=== PATIENT | female | born 1970 | race Hispanic/Latino ===

== ENCOUNTER 2021-03-01 11:14 | Emergency (ER) | payer BC ==
[~2021-03-01 11:14] MED LIST: CIPROFLOXACN500 MG PO; NAPROSYN375 MG PO
[2021-03-01 12:37] LABS: HEMATOCRIT 40.6 % (37.0-47.0); HEMOGLOBIN 13.7 g/dl (12.0-16.0); IMMATURE GRANULOCYTES 0.1 % (0.0-5.0); MEAN CELL VOLUME 99.3 fL CALC (80.0-100.0); MEAN CORPUSCULAR HGB 33.5 pG CALC (26.0-32.0); MEAN CORPUSCULAR HGB CONC 33.7 g/dL CAL (32.0-36.0); NEUT# 10.66 thou/uL (2.00-7.15); RED BLOOD COUNT 4.09 mill/uL (4.20-5.60)
[2021-03-01 12:52] LABS: ALKALINE PHOSPHATASE 91 u/l (38-126); ANION GAP 16 (6-22 (CALC)); BILIRUBIN, TOTAL 0.6 mg/dL (0.0-1.4); BUN 13 mg/dL (7-17); BUN/CREATININE RATIO 21 (12-20 (CALC)); CARBON DIOXIDE 20 mmol/l (22-30); CHLORIDE 104 mmol/l (95-108); CREATININE 0.6 mg/dL (0.5-1.0); GFR > 60 ML/MIN (>=60 (CALC)); GFR FOR AFR.AMER. > 60 ML/MIN (>=60 (CALC)); POTASSIUM 4.1 mmol/l (3.5-5.1); SGOT/AST 30 u/l (14-36); SODIUM 136 mmol/l (137-146); TOTAL PROTEIN 7.1 g/dL (6.3-8.2)
[2021-03-01 12:53] LABS: ALBUMIN 3.7 g/dL (3.2-5.0)
[2021-03-01 13:21] LABS: URINE BILIRUBIN - DIPSTICK NEGATIVE (NEGATIVE); URINE BLOOD DIPSTICK NEGATIVE (NEGATIVE); URINE COLOR YELLOW; URINE GLUCOSE - DIPSTICK NEGATIVE (NEGATIVE); URINE KETONE NEGATIVE (NEGATIVE); URINE LEUK ESTERASE NEGATIVE (NEGATIVE); URINE PROTEIN - DIPSTICK NEGATIVE (NEG-TRACE)
[2021-03-01 13:22] LABS: URINE NITRITE - DIPSTICK NEGATIVE (Negative)
[2021-03-01] MEDS ORDERED: ZOFRAN4 MG/TAB PO (15:40)
[2021-03-01 16:02] VITALS: BP 93/65
== END 2021-03-01 16:03 | disposition home or self-care (01) | DRG 866 ==
LOC: ED 11:14
PROVIDERS: Family Medicine
DX: B34.9 Viral infection, unspecified (principal); Z20.822 Contact with and (suspected) exposure to COVID-19
CPT/HCPCS: Q9967